=== PATIENT | male | born 1970 | race Caucasian/White ===

== ENCOUNTER 2025-02-23 00:59 | Day surgery (SDC) | payer BC, SELFPAY ==
[2025-02-20 10:53] VITALS: BMI 31.8
[2025-02-23] VITALS (16 sets, daily range): BP systolic 89–172; BP diastolic 63–83; PULSE 63–70; RESP 12–19; TEMP 36.2; O2SAT 94–100
[2025-02-23 10:27] LABS: Hematocrit 31.0 % (42.0-52.0); Hemoglobin 10.2 g/dL (14.0-18.0); Immature Granulocyte Percent A 0.2 % (0-0.5); Lymphocytes Absolute Auto 1.59 K/mm3 (0.9-3.2); Mean Corpuscular HGB Conc 32.9 g/dl (32-36); Mean Corpuscular Hemoglobin 27.1 pg (26-34); Mean Corpuscular Volume 82.4 fl (80-100); Nucleated Red Blood Cells Absolute Auto 0.000 K/mm3 (0.0-0.012); Nucleated Red Blood Cells Perc 0.0 % (0.0-0.2); Platelet Count Result 239 k/mm3 (150-375); Red Blood Count 3.76 M/mm3 (4.6-6.20); White Blood Count 5.5 K/mm3 (4.5-10.0)
[2025-02-23 10:47] LABS: Anion Gap 9 mmol/L (4-12); Blood Urea Nitrogen 42 mg/dL (9-20); Calcium 8.8 mg/dL (8.4-10.2); Carbon Dioxide 22 mmol/L (22-30); Chloride 108 mmol/L (98-107); Estimated CRCL calculation 37 ml/min; Estimated Glomerular Filt Rate 28; Glucose 82 mg/dL (65-110); Potassium 4.1 mmol/L (3.4-5.0); Sodium 139 mmol/L (137-145)
--- NOTE | 2025-02-23 11:16 | PM.IMHP ---
H&P: HPI History of Present Illness Date/Time: 02/23/25 11:16 Chief Complaint: Exertional dyspnea Narrative: 54-year-old man with chronic kidney disease stage IIIB, diabetes, peripheral arterial disease, hypertension, and hyperlipidemia was referred for evaluation of exertional dyspnea for which he underwent nuclear stress test that had an abnormal transient ischemic dilatation for which cardiac catheterization has been recommended. No chest pain. Review of Systems Cardiovascular: Cardiovascular: Reports as per HPI Respiratory: Respiratory: Reports as per HPI COUNTS INCLUDE 234 BEDS AT THE [facility] Social History Social History Smoking status: Never smoker Second hand tobacco smoke exposure: No Alcohol intake: current Drinks per week: 2 Substance use: never Substance use type: does not use Living arrangements: with family Spiritual care concerns: No Meds Home Medications and Allergies Home Medications ?Medication ?Instructions ?Recorded ?Confirmed ?Type atorvastatin 40 mg tablet 40 mg PO DAILY 02/20/25 02/20/25 History fenofibrate nanocrystallized 48 mg 48 mg PO DAILY 02/20/25 02/20/25 History tablet gabapentin 300 mg capsule 300 mg PO TID 02/20/25 02/20/25 History insulin glargine 100 unit/mL (3 20 unit subcut DAILY 02/20/25 02/20/25 History mL) subcutaneous pen (Lantus Solostar U-100 Insulin) latanoprost 0.005 % eye drops 1 drp LEFT EYE HS 02/20/25 02/20/25 History levothyroxine 50 mcg tablet 50 mcg PO DAILY 02/20/25 02/20/25 History losartan 100 mg tablet 100 mg PO HS 02/20/25 02/20/25 History metformin 500 mg tablet,extended 500 mg PO BID 02/20/25 02/20/25 History release 24 hr metoprolol tartrate 50 mg tablet 50 mg PO Q12H 02/20/25 02/23/25 History nifedipine 60 mg tablet,extended 60 mg PO Q12H 02/20/25 02/23/25 History release repaglinide 1 mg tablet 1 mg PO .dinner 02/20/25 02/20/25 History timolol maleate 0.5 % eye drops 1 drp EACH EYE Q12H 02/20/25 02/20/25 History tirzepatide 12.5 mg/0.5 mL 12.5 mg subcut WEEKLY 09/19/25 09/19/25 History subcutaneous pen injector (Robb) torsemide 20 mg tablet 20 mg PO BID 02/20/25 02/20/25 History Allergies Allergy/AdvReac Type Severity Reaction Status Date / Time No Known Allergies Allergy Verified 02/20/25 10:50 Vital Signs Vital Signs - 24 hr 02/23/25 10:14 Temperature 36.2 C L Pulse Rate 70 Respiratory Rate 12 Blood Pressure 139/82 Pulse Oximetry 100 Oxygen Delivery Room Air Exam Const: General: comfortable HENMT: Mouth: Yes moist mucous membranes Eyes: EOM: EOMs intact bilaterally Neck: Neck: no JVD Resp: Effort & Inspection: normal respiratory effort Auscultation: clear to auscultation bilaterally Cardio: Rate: regular rate Rhythm: regular rhythm H&P: Results Labs Labs: Short CBC 02/23/25 Range/Units 10:18 WBC 5.5 (4.5-10.0) K/mm3 Hgb 10.2 L (14.0-18.0) g/dL Hct 31.0 L (42.0-52.0) % Plt Count 239 (150-375) k/mm3 [facility] 02/23/25 10:18 Sodium 139 Potassium 4.1 Chloride 108 H Carbon Dioxide 22 BUN 42 H Creatinine 2.45 H Glucose 82 Calcium 8.8 Assessment and Plan Assessment and plan (1) Abnormal stress test: Code(s): R94.39 - Abnormal result of other cardiovascular function study Status: Acute Plan 54-year-old man with chronic kidney disease stage IIIB, diabetes, peripheral arterial disease, hypertension, and hyperlipidemia was referred for evaluation of exertional dyspnea for which he underwent nuclear stress test that had an abnormal transient ischemic dilatation for which cardiac catheterization has been recommended Abnormal nuclear stress test -we discussed the risks, benefits, and alternatives for the cardiac catheterization with possible PCI -all questions have been answered patient agrees to proceed forward -will start IV hydration at 200 cc/hour during his chronic kidney disease stage 3B
--- NOTE | 2025-02-23 12:12 | WPDCARDPROC ---
Cardiac Cath Procedure Note Date of procedure:: 02/23/25 Performing physician:: CATHETERIZATION LABORATORY REPORT Procedure Date: 02/23/2025 Referring Physician: Dr. Torres Anesthesia: Versed and Fentanyl were ordered and given in my presence at 1151, procedure ended at 1206. Supervision of nurse, Osmani Hines monitored moderate sedation with 2mg Versed and 100mcg Fentanyl was provided for 15 minutes. Pre-op Diagnosis: Abnormal nuclear stress test Post-op Diagnosis: Abnormal nuclear stress test Procedure(s): Left heart catheterization with coronary angiography Access Site: Right radial artery Brief History and Clinical Indications: 54-year-old man with chronic kidney disease stage IIIB, diabetes, peripheral arterial disease, hypertension, and hyperlipidemia was referred for evaluation of exertional dyspnea for which he underwent nuclear stress test that had an abnormal transient ischemic dilatation for which cardiac catheterization has been recommended All risks, benefits and alternatives to left heart catheterization with or without percutaneous coronary intervention was discussed at length with the patient. Risk of complications including but not limited to bleeding, infection, arrhythmia, stroke, worsening kidney function, blood loss, groin hematoma, limb loss, emergency coronary artery bypass grafting, and even were discussed with the patient and all questions were answered. The patient understood and wished to proceed. Time out called, patient name, date of , medical record number, allergies, procedure performed, identify Shop Repairer, patient and staff member concurred with accurate data, procedure carried on. Findings: LEFT HEART CATHETERIZATION FINDINGS: 1. Left main: The left main coronary artery is widely patent without any significant obstructive disease. 2. Left anterior descending: The LAD provides 3 diagonal branches. The LAD in its proximal body has luminal irregularities followed by 40-50% stenosis in its midbody. The diagonal branches and the remainder of LAD has luminal irregularities. 3. Left circumflex: The left circumflex artery and the main marginal branches have mild luminal irregularities without any significant obstructive angiographic disease. 4. Right coronary artery: The RCA is a moderate caliber dominant vessel with luminal irregularities. 5. Left ventricle: A. End-diastolic pressure 14 mmHg. B. LV gram deferred. C. No significant gradient across aortic valve on catheter pullback. 6. Opening AO pressure 112/67 and closing AO pressure 112/67 Description of Procedure: Informed consent signed and placed in the chart. Patient transferred to manager labor delivery room. Prepped and draped in usual sterile fashion. 2% lidocaine injected subcutaneously in right wrist area. 22-gauge venipuncture catheter used to access the right radial artery with the Seldinger technique. 6-FR slender sheath placed in right radial artery. Nitroglycerin 200mcg, Verapamil 2.5mg, and Heparin 5000U was given intraarterial through the sheath. J wire advanced under fluoroscopy 5F Ultra diagnostic catheter to cross into the left ventricle LVEDP measurement pullback gradients across the aortic valve. This catheter was then used to engage the coronary. The 5F Ultra diagnostic catheter was unable to engage the left main coronary artery and we attempted a JL 3.5 diagnostic catheter which also was unable to reach the main coronary artery. These catheters were eventually switched out for a 6F EBU guide catheter to engage the left main coronary artery. Multiple orthogonal angiogram obtained and reviewed. Hemostasis was achieved by application of TR band. Assessment: Moderate nonobstructive coronary artery disease Post Operative Condition: Stable No significant blood loss Disposition: Home Plan: The above findings were discussed with the referring physician. Continue aggressive medical therapy and risk factor modification. [facility]
--- NOTE | 2025-03-11 14:32 | P.SEDATION_ITS ---
Moderate Sedation Note-Pt Data Patient Data Allergies Allergy/AdvReac Type Severity Reaction Status Date / Time No Known Allergies Allergy Verified 02/20/25 10:50 Home Medications ?Medication ?Instructions ?Recorded ?Confirmed ?Type atorvastatin 40 mg tablet 40 mg PO DAILY 02/20/2502/02 History fenofibrate nanocrystallized 48 mg 48 mg PO DAILY 02/0202/20/25 History tablet gabapentin 300 mg capsule 300 mg PO TID 02/20/2502/20 History insulin glargine 100 unit/mL (3 20 unit subcut DAILY 0 02/20/25 02/20/25 History mL) subcutaneous pen (Lantus Solostar U-100 Insulin) latanoprost 0.005 % eye drops 1 drp LEFT EYE HS 02/20/25 History levothyroxine 50 mcg tablet 50 mcg PO DAILY 02/20/25 0 02/20/25 History losartan 100 mg tablet 100 mg PO HS 02/20/25 History metoprolol tartrate 50 mg tablet 50 mg PO Q12H 5 02/23/25 History nifedipine 60 mg tablet,extended 60 mg PO Q12H 5 02/23/25 History release repaglinide 1 mg tablet 1 mg PO .dinner 02/20/25 History timolol maleate 0.5 % eye drops 1 drp EACH EYE Q12H 02/20/25 History tirzepatide 12.5 mg/0.5 mL 12.5 mg subcut WEEKLY 02/2002/20/25 History subcutaneous pen injector (Robb) torsemide 20 mg tablet 20 mg PO BID 02/20/25 History metformin 500 mg tablet,extended 500 mg PO BID #180 ta bs 02/23/25 02/20/25 Rx release 24 hr Sedation/Anesthesia: No previous sedation/anesthesia problems (including family history). [facility] Social History Social History Smoking status: Never smoker Second hand tobacco smoke exposure: No Alcohol intake: current Drinks per week: 2 Substance use: never Substance use type: does not use Living arrangements: with family Spiritual care concerns: No Mod Sed Physical Exam Physical Exam Pre Procedural Exam: Normal: Lungs, Heart Size, Heart Rate and Heart Rhythm Hours since solid foods: 12 Hours since liquid intake: 12 Mallampati Classification: class II Internal Medicine - PN: Obj Da Labs 02/23/25 10:18 02/23/25 10:18 ASA Classification/Sedation ASA Classification/Sedation ASA Class: III Emergent: No Risks: Risks, benefits and alternatives explained and patient/family accepted plan for sedation. Patient re-evaluated immediately prior to sedation.
--- NOTE | 2025-03-11 14:32 | WPDMODSED ---
Moderate Sedation Note-Pt Data Patient Data Allergies Allergy/AdvReac Type Severity Reaction Status Date / Time No Known Allergies Allergy Verified 02/20/25 10:50 Home Medications ?Medication ?Instructions ?Recorded ?Confirmed ?Type atorvastatin 40 mg tablet 40 mg PO DAILY 02/20/25 02/20/25 History fenofibrate nanocrystallized 48 mg 48 mg PO DAILY 02/20/25 02/20/25 History tablet gabapentin 300 mg capsule 300 mg PO TID 02/20/25 02/20/25 History insulin glargine 100 unit/mL (3 20 unit subcut DAILY 02/20/25 02/20/25 History mL) subcutaneous pen (Lantus Solostar U-100 Insulin) latanoprost 0.005 % eye drops 1 drp LEFT EYE HS 02/20/25 02/20/25 History levothyroxine 50 mcg tablet 50 mcg PO DAILY 02/20/25 02/20/25 History losartan 100 mg tablet 100 mg PO HS 02/20/25 02/20/25 History metoprolol tartrate 50 mg tablet 50 mg PO Q12H 02/20/25 02/23/25 History nifedipine 60 mg tablet,extended 60 mg PO Q12H 02/20/25 02/23/25 History release repaglinide 1 mg tablet 1 mg PO .dinner 02/20/25 02/20/25 History timolol maleate 0.5 % eye drops 1 drp EACH EYE Q12H 02/20/25 02/20/25 History tirzepatide 12.5 mg/0.5 mL 12.5 mg subcut WEEKLY 02/20/25 02/20/25 History subcutaneous pen injector (Robb) torsemide 20 mg tablet 20 mg PO BID 02/20/25 02/20/25 History metformin 500 mg tablet,extended 500 mg PO BID #180 tabs 02/23/25 02/20/25 Rx release 24 hr Sedation/Anesthesia: No previous sedation/anesthesia problems (including family history). [facility] Social History Social History Smoking status: Never smoker Second hand tobacco smoke exposure: No Alcohol intake: current Drinks per week: 2 Substance use: never Substance use type: does not use Living arrangements: with family Spiritual care concerns: No Mod Sed Physical Exam Physical Exam Pre Procedural Exam: Normal: Lungs, Heart Size, Heart Rate and Heart Rhythm Hours since solid foods: 12 Hours since liquid intake: 12 Mallampati Classification: class II Internal Medicine - PN: Obj Da Labs 02/23/25 10:18 02/23/25 10:18 ASA Classification/Sedation ASA Classification/Sedation ASA Class: III Emergent: No Risks: Risks, benefits and alternatives explained and patient/family accepted plan for sedation. Patient re-evaluated immediately prior to sedation.
== END 2025-02-23 16:00 | disposition home or self-care (01) ==
PROVIDERS: PCP Nurse Practitioner; Visit Provider Internal Medicine
PROC: 4A023N7 Measurement of Cardiac Sampling and Pressure, Left Heart, Percutaneous Approach (ICD-10-PCS; CPT 93452; principal; 2025-02-23 11:30)
DX: I25.10 Atherosclerotic heart disease of native coronary artery without angina pectoris (principal); E11.22 Type 2 diabetes mellitus with diabetic chronic kidney disease; I12.9 Hypertensive chronic kidney disease with stage 1 through stage 4 chronic kidney disease, or unspecified chronic kidney disease; N18.32 Chronic kidney disease, stage 3b; E78.5 Hyperlipidemia, unspecified; I73.9 Peripheral vascular disease, unspecified; Z79.4 Long term (current) use of insulin; Z79.84 Long term (current) use of oral hypoglycemic drugs; Z79.85 Long-term (current) use of injectable non-insulin antidiabetic drugs
CPT/HCPCS: 36415; 80048; 85025; 93458; C1769; C1887; C1894; J1644; J2003; J2250; J2305; J3010; J7040